=== PATIENT | male | born 1975 | race Hispanic/Latino ===

== ENCOUNTER 2016-12-08 14:46 | Emergency (ER) | payer SELFPAY ==
[2016-12-08 15:08] VITALS: BP 141/85
--- NOTE | 2016-12-08 19:07 | Emergency Department Report ---
- General Chief complaint: Skin/Abscess/Foreign Body Stated complaint: HANDS SWELLING Time Seen by Provider: 12/08/16 19:02 Source: patient Mode of arrival: Ambulatory Limitations: No Limitations - Related Data Allergies Allergy/AdvReac Type Severity Reaction Status Date / Time No Known Allergies Allergy Verified 12/08/16 15:09 Abscess [facility] Chief Complaint: Skin/Abscess/Foreign Body Stated Complaint: HANDS SWELLING Time Seen by Provider: 12/08/16 19:02 Allergies/Adverse Reactions: Allergies Allergy/AdvReac Type Severity Reaction Status Date / Time No Known Allergies Allergy Verified 12/08/16 15:09 ED Review of Systems ROS: Stated complaint: HANDS SWELLING Other details as noted in HPI ED Past Medical Hx - Past Medical History Previous Medical History?: No - Surgical History Past Surgical History?: Yes Additional Surgical History: finger - Social History Smoking Status: Current Every Day Smoker Substance Use Type: None ED Physical Exam - General Limitations: No Limitations ED Course Vital Signs 12/08/16 15:04 Temperature 98 F Pulse Rate 93 H Respiratory 16 Rate Blood Pressure 141/85 O2 Sat by Pulse 99 Oximetry Critical care attestation.: If time is entered above; I have spent that time in minutes in the direct care of this critically ill patient, excluding procedure time. ED Disposition Condition: Stable Referrals: PRIMARY CARE, [Primary Care Provider] - 3-5 Days
--- NOTE | 2016-12-08 19:11 | Emergency Department Report ---
Upper Extremity - HPI Chief Complaint: Skin/Abscess/Foreign Body Stated Complaint: HANDS SWELLING Time Seen by Provider: 12/08/16 19:02 Upper Extremity: Left Hand (patient here reports that he has crawling sensation in both his hands with some numbness at times. He repeats that he thinks that there is something crawling around in his hands. 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 Reports pain 3 out of 10 on and off. Patient reports this has been going on for months), Right Hand Occurred When: >5 Days Mechanism: Unsure Severity: mild Symptoms: Yes Pain with Movement (both hands), Yes Numbness, Yes Swelling, Yes Laceration or Abrasion (reports several cuts to hands that's been there for months from doing woodwork), No Deformity, No Limited Range of Movement, No Weakness, No Bruising/Ecchymosis Other History: Patient here reports that his fingers and hands are swollen. He reports that he does woodworking and has several small cuts to his hands assessment ongoing for months. Patient is also a nailbiter. He feels things crawling around his hands. No [id number] medication taken. Denies any pain to wrist, forearm arms or elbow/arms. Tetanus vaccine is not up-to-date ED Review of Systems ROS: Stated complaint: HANDS SWELLING Other details as noted in HPI Comment: All other systems reviewed and negative Constitutional: denies: chills, fever Respiratory: no symptoms reported Cardiovascular: denies: chest pain, palpitations, edema, syncope Gastrointestinal: denies: nausea, vomiting Musculoskeletal: joint swelling, arthralgia. denies: back pain Skin: other (several cuts to hands) Neurological: numbness. denies: headache, weakness, paresthesias, confusion, abnormal gait ED Past Medical Hx - Past Medical History Previous Medical History?: No - Surgical History Past Surgical History?: Yes Additional Surgical History: finger - Family History Family history: hypertension - Social History Smoking Status: Current Every Day Smoker Substance Use Type: None - Medications Home Medications: Home Medications Medication Instructions Recorded Confirmed Last Taken Type Cephalexin [Keflex] 500 mg PO Q8HR #21 cap 12/08/16 Unknown Rx traMADol [Ultram 50 MG tab] 50 mg PO Q6HR PRN #20 tablet 12/08/16 Unknown Rx Upper Extremity Exam - Exam General: Vital signs noted. No distress. Alert and acting appropriately. Head and Torso: No HEENT Abnormality, No Neck Tenderness, No Chest/Lungs Abnormality, No Abdominal Tenderness, No Back Tenderness Shoulder Exam: Yes Normal Range of Motion in Shoulder, No Shoulder Tenderness, No Clavicle Tenderness, No Shoulder Deformity, No AC Joint Tenderness Arm Exam: No Arm/Humerus Tenderness, No Arm Deformity Elbow: Yes Normal Range of Motion in Elbow, No Elbow Tenderness, No Elbow Deformity Forearm: No Forearm Tenderness, No Forearm Deformity, No Pain with Pronation, No Pain with Supination Wrist: Yes Normal ROM in Wrist, No Wrist Tenderness, No Wrist Deformity, No Snuffbox Tenderness, No Pain with Axial Thumb Compression Hand: Yes Normal ROM in Digit(s) (missing distal phalanx left third 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 ED Medical Decision Making - Radiology Data Radiology results: report reviewed X-ray report of bilateral hands report no acute bony or soft tissue injuries. No foreign body mention. - Medical Decision Making ED course: Patient here reports that he feels like there is something crawling around in his hands. He reports multiple abrasions to his hand from doing blood work and this has been going on for a period of months. He also reports occasional numbness but denies any weakness. Bilateral hand automatic data processing planner are strong and equal. Patient has normal sensation to both hands. He has normal sensation to bilateral upper extremities. No signs of tendon injuries. X-ray results of both hands reveal no acute soft tissue or bony abnormalities or mention of foreign body. Patient given Boostrix in emergency room and I discussed with him up with him on antibiotic due to multiple abrasions. Discussed the patient that he feet continues to have symptoms to hands that he will need to follow-up with orthopedic doctor. Patient discharged home with prescription for Ultram and Keflex. Critical care attestation.: If time is entered above; I have spent that time in minutes in the direct care of this critically ill patient, excluding procedure time. ED Disposition Clinical Impression: Arthralgia of hands, bilateral, Numbness and tingling in both hands Abrasion hand Qualifiers: Encounter type: initial encounter Laterality: unspecified laterality Qualified Code(s): S60.519A - Abrasion of unspecified hand, initial encounter Disposition: DISCHARGED TO HOME OR SELFCARE Is pt being admited?: No Does the pt Need Aspirin: No Condition: Stable Instructions: Arthralgia (ED), Paresthesia (ED), Abrasion (ED) Additional Instructions: Please stop biting your nails Please practice good hand hygiene You'll need to follow-up with orthopedic doctor regarding your chronic Take antibiotic as prescribed. Prescriptions: Cephalexin [Keflex] 500 mg PO Q8HR #21 cap traMADol [Ultram 50 MG tab] 50 mg PO Q6HR PRN #20 tablet PRN Reason: Pain Referrals: ЕЛЕНА PELAEZ MD [Staff Physician] - 2-3 Days Forms: Work/School Release Form(ED)
[2016-12-08] MEDS ORDERED: BOOSTRIX IM ONE (19:46)
--- NOTE | 2016-12-08 20:08 | XRay Report ---
FINAL REPORT EXAM: XR HAND BILAT 3 HISTORY: HANDS ARE SWOLLEN WITH SMALL CUTS TECHNIQUE: AP, lateral, and oblique views of each hand bilaterally. PRIORS: None. 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 There is no evidence for acute fracture or dislocation. No soft tissue swelling or radiopaque foreign bodies are seen. Bony mineralization is normal and joint spaces are maintained. IMPRESSION: No acute bony or soft tissue abnormality noted.
[2016-12-08] MEDS ORDERED: TRIPLE ANTIBIOTIC TP ONE (20:24)
[2016-12-09] MEDS ORDERED: TRIPLE ANTIBIOTIC TP SCH ×2 (08:00)
== END 2016-12-08 21:00 | disposition home or self-care (01) ==
LOC: ED 14:46
DX: S60.511A Abrasion of right hand, initial encounter (principal); S60.512A Abrasion of left hand, initial encounter; F17.200 Nicotine dependence, unspecified, uncomplicated; W45.8XXA Other foreign body or object entering through skin, initial encounter; Y93.9 Activity, unspecified; Y92.9 Unspecified place or not applicable; Y99.9 Unspecified external cause status
CPT/HCPCS: 90471; 90715; 99283; A6250